=== PATIENT | female | born 1930 | race Two or more races ===

== ENCOUNTER 2018-02-19 11:09 | Day surgery (SDC) | payer MEDICARE, MEDICAID ==
[~2018-02-19] VITALS: Ht 152.4 cm; Wt 51.8 kg
--- NOTE | ~2018-02-19 | OP ---
PATIENT NAME: HANS CRUM MEDICAL RECORD: [id number] :31 LOCATION:[facility] ADMISSION DATE: SURGEON: CARMEN MEZA MD DATE OF OPERATION: 02/19/2018 PROCEDURE: EGD with biopsy and esophageal balloon dilatation. REFERRING PHYSICIAN: Mavis Somers APN INDICATIONS: Ms. Kaur is a delightful 87-year-old woman, non-[place]er speaking (speaks Urdu), who presents for further evaluation of heartburn, dysphagia, which has been present intermittently for at least 6 months. She had an EGD in 10/31/2012 with findings showing hiatal hernia, normal esophagus, mild gastritis. 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 A video of fluoroscopic swallowing study done 11/05/2012 showed no gross abnormalities and recommendations were small sips and bites, alternating with liquids and solids (everything on exam looked normal). A modified barium swallow result showed some occasional penetration of thin mixture, but no definite aspiration or definite significant abnormality of swallowing mechanism otherwise. 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 She presents for outpatient EGD. PREMEDICATIONS: Total IV anesthesia (advanced age, coronary artery disease) propofol 100 mg. INSTRUMENT: Olympus video gastroscope and a through the scope esophageal balloon dilator. PROCEDURE AND FINDINGS: After receiving informed consent, Ms. Crum's posterior pharynx was anesthetized with Cetacaine with spray. She was placed in left lateral decubitus position and sedated as per anesthesia. After achieving an adequate level of sedation, gastroscope was introduced per orally and advanced into the duodenum without difficulty. The esophageal mucosa was without erythema or ulcers, just proximal to the GE junction was some circumferential nonobstructing ring through which the scope passed easily. A moderate size hiatal hernia was present. Gastric mucosa was multiple for small erosions and a few small ulcers in the antrum, nonhemorrhagic. Antral biopsies were obtained to rule out Helicobacter pylori. No lesions were seen in the body of the stomach. No erosions or ulcers were seen in the cardia, fundus or body of the stomach. Pylorus was patent and competent. Duodenal mucosa was without erythema or ulcers, appeared normal through the second portion. The gastroscope was then withdrawn to the stomach and then esophageal balloon dilator was passed through the gastroscope positioned midway across the GE junction, insufflated from a 54 to a 57-[place]ian size, held in place on the appropriate PSI for 60 seconds, then deflated with good results. Gastroscope was then withdrawn. Ms. Crum tolerated the procedure well, no immediate complications. OPERATIVE REPORT [id number] HANS CRUM ASSESSMENT: 1. Nonobstructive distal esophageal ring, status post esophageal balloon dilatation. 2. Moderate size hiatal hernia. 3. Moderate erosive gastritis with a few small ulcers involving the antrum of the stomach status post antral biopsy. RECOMMENDATIONS: 1. Follow up histopathology. 2. Avoid nonsteroidal anti-inflammatory drugs. 3. Soft diet today. 4. Resume Plavix in 48 hours. 5. Ranitidine 150 mg p.o. b.i.d. 6. Follow up EGD in 3 months to document healing of gastric antral ulcers. 7. Repeat CT of the neck to evaluate her multinodular goiter, which may well be contributing to her dysphagia symptoms. TRANSINT:[id number] Voice Confirmation ID: [id number] DOCUMENT ID: [id number] CARMEN MEZA MD at 2003 CC: MAVIS SOMERS APN [id number] DICTATION DATE: 02/19/18 1322 STOCK SUPERVISOR: 02/19/18 1516 [facility] 02/19/18 [facility] [address] [place] [address]
[2018-02-19] MEDS ORDERED: TAPAZOLE 5 MG TA5 MG PO (11:33)
[2018-02-19] MEDS ORDERED: GABAPENTIN100 MG PO (11:33)
[2018-02-19] MEDS ORDERED: PLAVIX75 MG PO (11:34)
[2018-02-19] MEDS ORDERED: COZAAR50 MG (11:34)
[2018-02-19] MEDS ORDERED: TOPROL XL25 MG (11:35)
[2018-02-19] MEDS ORDERED: TRAVATAN Z2.5 ML EACH EYE (11:35)
[2018-02-19 11:45] VITALS: BP 151/71; Ht 152.4 cm; Wt 51.8 kg
[2018-02-19 12:07] LABS: HEMATOCRIT 27.2 % (36.0-48.0); HEMOGLOBIN 7.6 g/dL (12-16); MCHC 27.9 g/dL (31.0-37.0); MCV 69.4 fL (80.0-100.0); MEAN PLATELET VOLUME 8.6 fL (7.4-10.4); RBC 3.92 10x6/uL (4.00-5.40); RDW 19.8 % (11.5-14.5); WBC 6.7 10x3/uL (4.8-10.8)
[2018-02-19 12:55] LABS: MCH 19.4 pg (26.0-34.0)
== END 2018-02-19 14:33 | disposition home or self-care (01) ==
LOC: D.OPS 11:09
PROVIDERS: Anesthesiology
DX: K22.2 Esophageal obstruction (principal); K44.9 Diaphragmatic hernia without obstruction or gangrene; K29.00 Acute gastritis without bleeding; K29.50 Unspecified chronic gastritis without bleeding; Z01.812 Encounter for preprocedural laboratory examination

== ENCOUNTER 2018-02-21 09:01 | Outpatient (CLI) | payer MEDICARE, MEDICAID ==
[~2018-02-21] VITALS: Ht 152.4 cm; Wt 51.8 kg
[~2018-02-21 09:01] MED LIST: COZAAR50 MG; GABAPENTIN100 MG PO; PLAVIX75 MG PO; TAPAZOLE 5 MG TA5 MG PO; TOPROL XL25 MG; TRAVATAN Z2.5 ML EACH EYE
[2018-02-21 10:07] VITALS: BP 148/68; Ht 152.4 cm; Wt 51.8 kg
[2018-02-21 10:09] LABS: T4 THYROXINE 10.4 ug/dL (4.7-13.3); THYROID STIMULATING HORMONE 0.06 uIU/mL (0.36-3.74)
== END 2018-02-21 15:30 | disposition home or self-care (01) ==
LOC: D.OPS 09:01
PROVIDERS: Internal Medicine Gastroenterology
DX: D64.9 Anemia, unspecified (principal); E04.9 Nontoxic goiter, unspecified; Z01.812 Encounter for preprocedural laboratory examination

== ENCOUNTER 2018-03-08 07:26 | Outpatient (CLI) | payer MEDICARE, MEDICAID ==
[2018-02-21 10:07] VITALS: BMI 22.3
== END 2018-03-08 07:27 | disposition home or self-care (01) ==
LOC: D.RAD 07:26
DX: D64.9 Anemia, unspecified (principal)

== ENCOUNTER 2018-07-05 05:53 | Day surgery (SDC) | payer MEDICARE ==
[~2018-07-05] VITALS: Ht 152.4 cm; Wt 53.5 kg
[2018-07-05 06:40] LABS: ANION GAP 12.1 mmol/L (8-16); CALCIUM 8.9 mg/dL (8.5-10.1); CARBON DIOXIDE 27.9 mmol/L (21.0-32.0); CREATININE - SERUM 0.8 mg/dL (0.6-1.3)
[2018-07-05 06:41] LABS: INR 1.09 (0.85-1.17); PROTIME 13.6 SECONDS (11.6-15.0)
[2018-07-05 06:47] VITALS: Ht 152.4 cm; Wt 53.5 kg
[2018-07-05 07:31] LABS: HEMATOCRIT 42.7 % (36.0-48.0); HEMOGLOBIN 13.9 g/dL (12-16); LYMPHOCYTES 30.8 % (15-50); MCH 29.4 pg (26.0-34.0); MCHC 32.6 g/dL (31.0-37.0); MCV 90.3 fL (80.0-100.0); MEAN PLATELET VOLUME 10.4 fL (7.4-10.4); NEUTROPHILS 59.9 % (40-80); RBC 4.73 10x6/uL (4.00-5.40); WBC 6.1 10x3/uL (4.8-10.8)
[2018-07-05 07:34] LABS: PLATELET COUNT 297 10x3/uL (130-400)
--- NOTE | 2018-07-09 10:18 | OP ---
PATIENT NAME: HANS CRUM MEDICAL RECORD: [id number] :31 LOCATION:[facility] ADMISSION DATE: SURGEON: CARMEN MEZA MD DATE OF OPERATION: 07/05/2018 PROCEDURE: EGD with biopsy. REFERRING PHYSICIAN: Mavis Somers APN INDICATIONS: Ms. Crum is a pleasant 87-year-old woman who had a history of dysphagia. She had an EGD on 02/19/2018 with finding showing a nonobstructive distal esophageal ring dilated with an esophageal balloon dilator (to a 57-Banglades[place] size) moderate size hiatal hernia and moderate erosive gastritis with a few small ulcers involving the antrum. Antral biopsies were negative for Helicobacter pylori. She has been on Ranitidine 150 mg twice a day. She presents for outpatient followup EGD. PREMEDICATIONS: Total IV anesthesia (coronary artery disease and advanced age) propofol 60 mg. INSTRUMENT: Olympus video gastroscope. PROCEDURE AND FINDINGS: After receiving informed consent, Ms. Crum's posterior pharynx was anesthetized with Cetacaine spray. She was placed in left lateral decubitus position and sedated as per anesthesia. After achieving an adequate level of sedation, gastroscope was introduced per orally and advanced into the duodenum without difficulty. The esophageal mucosa was without erythema, ulcers, strictures or masses, appeared normal down the GE junction. A moderate size hiatal hernia is present. Gastric mucosa was notable for a small punctate ulcer in the fundus. The prepyloric and antral erosions and ulcers had healed. Antral biopsies were obtained. No lesions were seen in the body of the stomach. Pylorus was patent and competent. Duodenal mucosa was without erythema or ulcers, appeared normal through the second portion. Scope was then withdrawn. Ms. Crum tolerated the procedure well, no immediate complications. ASSESSMENT: 1. Healed antral ulcers, but a new small ulcer in the fundus. 2. Moderate size hiatal hernia. RECOMMENDATIONS: 1. Follow up histopathology. 2. Avoid nonsteroidal anti-inflammatory drugs. 3. Prilosec (omeprazole) 40 mg p.o. daily. TRANSINT:[id number] Voice Confirmation ID: [id number] DOCUMENT ID: [id number] CARMEN MEZA MD at 1018 CC: MAVIS SOMERS APN [id number] DICTATION DATE: 07/05/1821 COMMUNICATIONS ENGINEER: 07/05/18 1150 [facility] [place] 07/05/18 [facility] [address] [place] [address]
== END 2018-07-05 09:40 | disposition home or self-care (01) ==
LOC: D.OPS 05:53
PROVIDERS: Anesthesiology; ATTEND Internal Medicine Gastroenterology
DX: K25.9 Gastric ulcer, unspecified as acute or chronic, without hemorrhage or perforation (principal); K44.9 Diaphragmatic hernia without obstruction or gangrene; K29.50 Unspecified chronic gastritis without bleeding; Z01.812 Encounter for preprocedural laboratory examination

== ENCOUNTER → 2019-01-27 08:32 | Outpatient (CLI) | payer MEDICARE ==
[2018-07-05 06:47] VITALS: BMI 23.0
== END | disposition home or self-care (01) ==
LOC: D.RAD 08:32
PROVIDERS: ATTEND Internal Medicine Gastroenterology
DX: R13.10 Dysphagia, unspecified (principal)